=== PATIENT | female | born 1995 | race Hispanic/Latino ===

== ENCOUNTER 2019-08-12 16:32 | Emergency (ER) | payer OTHER ==
[2019-08-12] MEDS ORDERED: SODIUM CHLORIDE 0.9% 1000ML 1,000 ML IV ONE (17:58)
[2019-08-12] MEDS ORDERED: METOCLOPRAMIDE 10 MG/2 ML VIAL ONE (17:58)
[2019-08-12 18:05] LABS: BASOPHILS % (AUTO) 0.8 % (0.0-5.0); HEMATOCRIT 36.6 % (36-48); LYMPHOCYTES % (AUTO) 4.7 % (21.0-51.0); MEAN CORPUSCULAR HEMOGLOBIN 25.1 pg (27.0-33.0); MEAN CORPUSCULAR HGB CONC 32.6 g/dL (32.0-36.0); MEAN CORPUSCULAR VOLUME 76.8 fL (79-99); MONOCYTES % (AUTO) 2.5 % (3.0-13.0); PLATELET COUNT (AUTO) 389 K/uL (130-400); RED BLOOD CELL COUNT(AUTO) 4.76 MIL/uL (4.00-5.50); WHITE BLOOD COUNT (AUTO) 14.5 K/uL (4.8-10.8)
[2019-08-12 18:13] LABS: APPEARANCE,URINE CLOUDY (CLEAR); BILIRUBIN,URINE NEGATIVE (NEGATIVE); COLOR,URINE YELLOW (YELLOW); GLUCOSE, URINE (UA) NEGATIVE (NEGATIVE); KETONES,URINE 5 mg/dL (NEGATIVE); LEUKOCYTE ESTERASE ,URINE SMALL (NEGATIVE); NITRATE,URINE POSITIVE (NEGATIVE); OCCULT BLOOD,URINE LARGE (NEGATIVE); PH,URINE 8.5 (5.0-8.0); PROTEIN,URINE 100 mg/dL (NEGATIVE); UROBILINOGEN,URINE 0.2 mg/dL (0.2-1.0)
[2019-08-12 18:26] LABS: BACTERIA,URINE Many /HPF (None Seen); SQUAMOUS EPITHELIAL CELL,UR Many /HPF (0-2)
[2019-08-12 18:27] LABS: AMORPHOUS SEDIMENT,UR Moderate /LPF (None Seen); MUCUS,URINE Many LPF (None Seen)
[2019-08-12 18:36] LABS: CREATININE 0.8 mg/dL (0.5-1.5); INR 1.01 (0.85-1.15); PARTIAL THROMBOPLASTIN TIME 27.5 SEC (26.3-35.5); POTASSIUM 4.2 mmol/L (3.5-5.1); PROTHROMBIN TIME 10.6 SEC (9.6-11.6)
[2019-08-12 18:47] LABS: ALBUMIN 3.8 g/dL (3.5-5.0); BILIRUBIN,TOTAL 0.3 mg/dL (0.2-1.0); TOTAL PROTEIN, SERUM 7.8 g/dL (6.0-8.3)
[2019-08-12] MEDS ORDERED: CEFTRIAXONE SODIUM 1 GM ONE (18:56)
[2019-08-12] MEDS ORDERED: SODIUM CHLORIDE 0.9% 100 ML IV ONE (18:57)
== END 2019-08-12 20:23 | disposition home or self-care (01) ==
LOC: EDH 16:32
DX: N39.0 Urinary tract infection, site not specified (principal); R11.2 Nausea with vomiting, unspecified; R51 Headache
CPT/HCPCS: 36415; 80053; 81001; 83690; 84702; 85025; 85610; 85730; 86900; 86901; 96361; 96374; 96375; 99285; J0696; J2765; J7030

== ENCOUNTER 2025-09-05 22:25 | Emergency (ER) | payer SELFPAY ==
[~2025-09-05] VITALS: Ht 157.5 cm; Wt 99.8 kg
[2025-09-05 22:30] VITALS: BP 159/106; PULSE 92; RESP 20; TEMP 98.2
[2025-09-05] MEDS ORDERED: PRED50TA2 PO (22:40)
[2025-09-05] MEDS ORDERED: HYPR15DR24 OP (22:40)
[2025-09-05] MEDS ORDERED: ACYC-429 PO (22:43)
--- NOTE | 2025-09-05 22:43 | ERN ---
General Chief Complaint: Tooth Ache/Pain Stated Complaint: TOOTHACHE TO LEFT BOTTOM SIDE W/ NUMBNESS X 1 WK Time Seen by MD: 22:29 Source: patient History of Present Illness Initial Comments Patient is a 30-year-old female coming in complaining of right facial numbness. Per patient this started three days ago and today got worse she has also been complaining of left molar discomfort which has already has been seen by dentist in his she is currently on antibiotics. Allergies: Coded Allergies: No Known Allergies (Unverified Allergy, Unknown, 09/05/25) Past Medical History Past Medical History: No Pertinent History Past Surgical History: None ROS Dictation CONSTITUTIONAL: No chills, no fever, no weakness, no diaphoresis, no malaise. HEAD/FACE: No signs of trauma. EENT: No eye pain, no blurred vision, no tearing, no double vision, no ear pain, no ear discharge, no nose pain, no nasal congestion, no throat pain, no throat swelling, no mouth pain. RESPIRATORY: No cough, no orthopnea, no SOB, no stridor, no wheezing. CARDIOVASCULAR: No chest pain, no edema, no palpitations, no syncope. GASTROINTESTINAL/ABDOMINAL: No abdominal pain, no constipation, no diarrhea, no nausea, no vomiting. GENITOURINARY: No abnormal discharge, no dysuria, no frequent urination, no hematuria. No complaints of pain in the genitals. MUSCULOSKELETAL: No back pain, no gout, no joint pain, no joint swelling, no muscle pain, no muscle stiffness, no neck pain. INTEGUMENTARY: No change in color, no change in hair/nails, no dryness, no lesion, no lumps, no rash. NEUROLOGICAL/PSYCH: No anxiety, not depressed, no emotional problem, no headache, no numbness, no pre-existing deficit, no history of seizures, no tremors, no weakness. HEMATOLOGIC/LYMPHATIC: Not anemic, no history of blood clots, no apparent bleeding, no bruising, glands not swollen. All Systems Negative, Except as Noted. Physical Exam Physical Exam Dictation VITAL SIGNS: Reviewed. GENERAL APPEARANCE: Alert, oriented x3, no acute distress, obese. HEAD AND FACE: Non-traumatic. Right facial weakness and numbness EYES: PERRL, pink conjunctivas, eyelid no trauma, anterior chamber clear. EARS: Pinnas intact and no signs of trauma or erythema. Ear canals clear and no discharge. TMs no erythema. NOSE: No discharge, no bleeding. OROPHARYNX: Mouth normal, teeth no caries, tongue pink. Pharynx clear, no erythema. Tonsils no exudates, no abscesses noted. Mucous membrane moist. NECK: Supple, non-tender, no thyromegaly, no masses, no JVD, no bruits. BREAST: Deferred. CHEST: No tenderness, no crepitus, no paradoxical movement, no retractions. LUNGS: Clear, well-ventilated, symmetric, no rales, no wheezing, no rhonchi, no stridor, good breath sounds bilaterally. HEART: Regular rate, regular rhythm, no murmur, no gallops. VASCULAR: No peripheral edema. ABDOMEN: Soft, positive bowel sounds, nondistended, no guarding, nontender, no rebound, no masses no hepatomegaly, no splenomegaly, no Fitch's sign, no hernias. RECTAL: Deferred. GENITAL: Deferred. NEUROLOGICAL: Normal speech, gross motor function intact, gross sensory function intact. MUSCULOSKELETAL: Neck nontender, full range of motion, back nontender, full range of motion. EXTREMITIES: Nontender, full range of motion. SKIN: Color pink, dry, no turgor, no rash, no lacerations, no abrasions, no contusions. LYMPHATICS: Deferred. Results Laboratory and Microbiology Labs Reviewed?: Yes MDM MDM: Differential diagnosis: Lieberman's palsy, Rationale: Tests considered and ordered secondary to shared decision making include: Previous outside records reviewed: Old ER visits. Risk of complication and/or morbidity or mortality of patient management: None Medications-Per medication reconciliation Need for hospitalization: Patient does not meet criteria for hospitalization. Need for emergency major/minor surgery: No Patient is a 30-year-old female coming in complaining of right facial numbness and weakness. Symptoms began three days ago but today got worse. On physical exam: The main sign of [place] palsy is facial muscle paralysis affecting right side of face. symptoms includes : Forehead. Eyebrow. Eye and eyelid. Corner of your mouth. Symptoms of [place] palsy tend to come on suddenly and reach peak severity within 48 to 72 hours. Some people develop mild facial muscle weakness. Others experience total muscle paralysis in their face. Its difficult to make full expressions with [place] palsy. Wrinkling your forehead, blinking and grimacing may be difficult or impossible on the affected side. Your face may feel numb or heavy. But you can still feel touch and tem peratures (like heat and coolness) on the affected side of your face. Patient will be discharged with oral steroids antivirals we will be considered. ED Course Vital Signs Date Time Temp Pulse Resp B/P (MAP) Pulse Ox O2 Delivery O2 Flow Rate FiO2 09/05/25 22:30 98.2 92 20 159/106 100 Room Air DX & DISP Disposition: Discharge Departure Impression: Primary Impression: Lieberman's palsy Condition: Stable Scripts Acyclovir (Acyclovir) 400 Mg Tablet 1 TAB PO 5XDAY for 10 Days, #50 TAB 0 Refills Prov: KYMBERLY PRICE MD 09/05/25 Hypromellose (Tears Lubricant Eye Drop) 0.5 % Drops 15 ML OP BID for 7 Days, #100 DROP Prov: KYMBERLY PRICE MD 09/05/25 Prednisone (Prednisone) 50 Mg Tablet 1 TAB PO DAILY for 10 Days, #5 TAB 0 Refills Prov: KYMBERLY PRICE MD 09/05/25 Additional Instructions: FOLLOW-UP WITH PRIMARY CARE PROVIDER IN 1 TO 2 DAYS. TAKE MEDICATIONS DIRECTED HERE IN THE EMERGENCY ROOM. OKAY TO CONTINUE HOME MEDICATIONS UNLESS OTHERWISE DISCUSSED DURING YOUR VISIT IN THE EMERGENCY ROOM TODAY. RETURN TO YOUR NEAREST EMERGENCY ROOM IF SYMPTOMS WORSEN OR IF THERE IS NO IMPROVEMENT. CALL 911 IF YOU NEED IMMEDIATE ASSISTANCE. TAKE TYLENOL [id number] NEEDED AND IF NO CONTRAINDICATIONS ARE PRESENT. INCREASE ORAL HYDRATION. A WOUND CULTURE OR URINE CULTURE WAS ORDERED HERE IN THE EMERGENCY ROOM DEPARTMENT PLEASE FOLLOW-UP WITH PRIMARY CARE PROVIDER AND ADVISE THEM TO GET REPORTS FROM OUR FACILITY. IF YOU HAD ANY SAADIA WRAP/SPLINTS THAT WERE APPLIED HERE, PLEASE DO NOT REMOVE THEM UNTIL YOU SEE YOUR PRIMARY CARE OR SPECIALTY. Referrals: Referrals: SELF,REFERRAL (PCP) NAKUL ERWIN MD Time of Disposition: 22:38 KYMBERLY PRICE MD Sep 05, 2025 22:43
== END 2025-09-05 22:53 | disposition home or self-care (01) ==
LOC: EDH 22:25
DX: G51.0 Bell's palsy (principal)
CPT/HCPCS: 99283